=== PATIENT | male | born 1975 | race African-American/Black ===

== ENCOUNTER 2024-10-19 10:00 | Inpatient (IN) | payer MEDICAID, OTHER ==
[~2024-10-19] VITALS: Ht 172.7 cm; Wt 64.9 kg
[2024-10-19] VITALS (19 sets, daily range): BP systolic 68–138; BP diastolic 53–81; PULSE 68–88; RESP 13–19; TEMP 36.4–37.1; O2SAT 98–100
[2024-10-19] MEDS: ONDANSETRON HCL 4MG/2ML INJ IV STA (10:25)
[2024-10-19] MEDS: SODIUM CHLORIDE 0.9% 1,000 ML IV ONE (10:25)
[2024-10-19 10:50] LABS: BASOPHILS % 0.7 % (0.0-2.0); HEMATOCRIT. 41.3 % (42.0-52.0); HEMOGLOBIN. 13.8 g/dL (14.0-18.0); LYMPHOCYTES % 7.3 % (20.0-50.0); MEAN CORPUSCULAR HEMOGLOBIN 30.7 pg (28.0-32.0); MEAN CORPUSCULAR HGB CONC 33.4 g/dL (31.0-37.0); MEAN PLATELET VOLUME 9.5 fl (7.4-10.4); MONOCYTES % 4.7 % (2.0-8.0); NEUTROPHILS % 87.3 % (40.0-76.0); PLATELET 141 x1000/uL (130-400); RED BLOOD CELL COUNT 4.49 mill/uL (4.7-6.1); RED CELL DISTRIBUTION WIDTH 14.3 % (11.6-14.6); WHITE BLOOD COUNT 9.8 x1000/uL (4.5-11.0)
[2024-10-19 11:01] LABS: PROTHROMBIN TIME 10.9 sec (9.6-11.0)
[2024-10-19 11:04] LABS: CARBON DIOXIDE 12 mEq/L (21-32); CHLORIDE 102 mEq/L (98-107); POTASSIUM 4.4 mEq/L (3.5-5.1); SODIUM 139 mEq/L (136-145)
[2024-10-19 11:05] LABS: CALCIUM 9.3 mg/dL (8.7-10.4)
[2024-10-19 11:10] LABS: GLUCOSE 355 mg/dL (70-105); UREA NITROGEN BLOOD 41 mg/dL (9-23)
[2024-10-19 11:11] LABS: TROPONIN I HIGH SENSITIVITY 11 ng/L (3.0-53)
[2024-10-19 11:17] LABS: BG BASE EXCESS -12.4 mmol/L (-2.0-3.0); BG CARBOXYHEMOGLOBIN 0.2 % (0.5-1.5); BG DEOXYHEMOGLOBIN 2.1 % (0.0-5.0); BG FRACTION INSPIRED OXYGEN 21; BG OXYGEN SATURATION 97.9 % (94.0-98.0); BG OXYHEMOGLOBIN 97.7 % (94.0-98.0); BG PCO2 24.7 mmHg (35.0-48.0); BG PH 7.305 (7.350-7.450); BG PO2 104.8 mmHg (83.0-108.0); BG SAMPLE SITE RIGHT RADIAL; BG TOTAL HEMOGLOBIN 13.7 g/dL (13.5-17.5); BG VENT MODE ROOM AIR
[2024-10-19 11:24] LABS: CREATININE 2.5 mg/dL (0.6-1.3)
[2024-10-19] MEDS ORDERED: BLOOD SUGAR DIAGNOSTIC STRIP TEST PRN ×2 (11:45→14:45)
[2024-10-19] MEDS ORDERED: SODIUM PHOSPHATE 15 MMOL in SODIUM CHLORIDE 0.9% 245 ML IV PRN (11:45)
[2024-10-19] MEDS ORDERED: MAGNESIUM 2 G PREMIX 50 ML IV PRN ×2 (11:45→14:45)
[2024-10-19] MEDS ORDERED: DEXTROSE 50% WATER 50ML SYRINGE IV PRN ×2 (11:45→14:45)
[2024-10-19] MEDS ORDERED: INSULIN REGULAR (DRIP) 100 UNITS in SODIUM CHLORIDE 0.9% 99 ML IV SCH (11:45)
[2024-10-19] MEDS ORDERED: KCL 20MEQ/100ML PREMIX 100 ML IV PRN (11:45)
[2024-10-19] MEDS ORDERED: POTASSIUM CHLORIDE 40 MEQ in SODIUM CHLORIDE 0.9% 230 ML IV PRN ×2 (11:45→14:45)
[2024-10-19] MEDS: DEXT 5%/0.9% NACL 1,000 ML IV SCH ×2 (11:45→15:51)
[2024-10-19 11:48] LABS: CLARITY URINE CLEAR (CLEAR); COLOR URINE YELLOW (YELLOW); GLUCOSE URINE 3+ (NEGATIVE); KETONES URINE 4+ (NEGATIVE); LEUKOCYTE ESTERASE URINE NEGATIVE (NEGATIVE); NITRITE URINE NEGATIVE (NEGATIVE); OCCULT BLOOD URINE TRACE (NEGATIVE); PROTEIN URINE NEGATIVE (NEGATIVE); SPECIFIC GRAVITY URINE 1.022 (1.005-1.030); UROBILINOGEN URINE 0.2 E.U./dL (0.2-1.0)
[2024-10-19 12:06] LABS: BACTERIA URINE NONE SEEN; RBC URINE NONE SEEN /hpf (0-2); SQUAMOUS EPITHELIAL CELL URINE NONE SEEN /lpf (RARE/1+); WBC URINE 0-2 /hpf (0-2)
[2024-10-19] MEDS: BLOOD SUGAR DIAGNOSTIC STRIP TEST SCH ×2 (12:22→14:45)
[2024-10-19] MEDS: SODIUM CHLORIDE 0.9% 1,000 ML IV SCH ×2 (12:35→22:45)
[2024-10-19] MEDS: INSULIN REGULAR 100U/100ML PMX 100 ML IV SCH (13:37)
[2024-10-19 15:26] LABS: BG BASE EXCESS -12.3 mmol/L (-2.0-3.0); BG CARBOXYHEMOGLOBIN 1.3 % (0.5-1.5); BG DEOXYHEMOGLOBIN 45.6 % (0.0-5.0); BG FLOW(L/min) 0 L/min; BG FRACTION INSPIRED OXYGEN 21; BG HCO3 ACT 13.8 mmol/L (21.0-28.0); BG OXYGEN SATURATION 53.8 % (94.0-98.0); BG OXYHEMOGLOBIN 53.1 % (94.0-98.0); BG PCO2 32.3 mmHg (35.0-48.0); BG PH 7.247 (7.350-7.450); BG SAMPLE SITE RIGHT BRACHIAL; BG TOTAL HEMOGLOBIN 13.9 g/dL (13.5-17.5); BG VENT MODE ROOM AIR
[2024-10-19 17:20] LABS: CHLORIDE 111 mEq/L (98-107); SODIUM 142 mEq/L (136-145)
[2024-10-19 17:21] LABS: CALCIUM 8.8 mg/dL (8.7-10.4)
[2024-10-19 17:26] LABS: CREATININE 2.2 mg/dL (0.6-1.3); UREA NITROGEN BLOOD 28 mg/dL (9-23)
[2024-10-19 17:28] LABS: PHOSPHORUS 2.2 mg/dL (2.5-4.9)
[2024-10-19 17:34] LABS: CARBON DIOXIDE 10 mEq/L (21-32)
[2024-10-19 17:35] LABS: GLUCOSE 187 mg/dL (70-105)
[2024-10-19 17:57] LABS: HEPATITIS B SURFACE ANTIGEN NEGATIVE (Negative)
[2024-10-19] MEDS: KCL 20MEQ/100ML PREMIX 100 ML IV PRN (18:06)
[2024-10-19 18:19] LABS: HEPATITIS C AB NON REACTIVE (Neg) (Negative)
[2024-10-19 20:45] LABS: CHLORIDE 113 mEq/L (98-107); POTASSIUM 4.6 mEq/L (3.5-5.1); SODIUM 144 mEq/L (136-145)
[2024-10-19 20:46] LABS: CARBON DIOXIDE 19 mEq/L (21-32)
[2024-10-19 20:54] LABS: PHOSPHORUS 1.2 mg/dL (2.5-4.9)
[2024-10-19] MEDS: SODIUM PHOSPHATE 15 MMOL in SODIUM CHLORIDE 0.9% 245 ML IV PRN (22:36)
[2024-10-19] MEDS ORDERED: ACETAMINOPHEN 325MG TABLET PO PRN ×2 (22:45)
[2024-10-19] MEDS ORDERED: MAGNESIUM/ALUMINUM HYDROXIDE/SIMETHICONE 30ML UDC PO PRN (22:45)
[2024-10-19] MEDS ORDERED: DIPHENHYDRAMINE 50MG/ML VIAL IV PRN (22:45)
[2024-10-19] MEDS ORDERED: ONDANSETRON HCL 4MG/2ML INJ IV PRN (22:45)
[2024-10-20] VITALS (25 sets, daily range): BP systolic 99–137; BP diastolic 59–77; PULSE 57–88; RESP 10–23; TEMP 35.9–37.1; O2SAT 96–100
[2024-10-20 01:51] LABS: CHLORIDE 113 mEq/L (98-107); POTASSIUM 4.1 mEq/L (3.5-5.1); SODIUM 145 mEq/L (136-145)
[2024-10-20 01:52] LABS: CARBON DIOXIDE 23 mEq/L (21-32)
[2024-10-20 01:59] LABS: PHOSPHORUS 1.1 mg/dL (2.5-4.9)
[2024-10-20] MEDS ORDERED: DEXTROSE 50% WATER 50ML SYRINGE IV PRN (02:15)
[2024-10-20] MEDS: SODIUM CHLORIDE 0.9% 1,000 ML IV SCH (02:26)
[2024-10-20] MEDS: INSULIN GLARGINE 100 UNITS/ML SUBCUT SCH ×2 (02:27→02:45)
[2024-10-20] MEDS: POTASSIUM PHOSPHATE 30 MMOL in SODIUM CHLORIDE 0.9% 490 ML IV NR (03:30)
[2024-10-20] MEDS: BLOOD SUGAR DIAGNOSTIC STRIP TEST SCH (06:19)
[2024-10-20] MEDS: SODIUM CHLORIDE 0.9% 3ML FLUSH IVF SCH (06:19)
[2024-10-20] MEDS: INSULIN LISPRO 100 UNITS/ML SUBCUT SCH (06:20)
[2024-10-20] MEDS: PANTOPRAZOLE SODIUM 40 MG/VIAL IV SCH (09:06)
[2024-10-26] MEDS ORDERED: EMPA10TA PO (10:02)
[2024-10-26] MEDS ORDERED: INSU100I13 SUBCUT (10:02)
[2024-10-26] MEDS ORDERED: SERT-422 PO (10:02)
[2024-10-26] MEDS ORDERED: INSU100I28 SUBCUT (10:02)
[2024-10-28] MEDS ORDERED: SERT-422 PO (12:25)
[2024-10-28] MEDS ORDERED: POTA-205 MT (12:25)
[2024-10-28] MEDS ORDERED: INSU100I28 SUBCUT (12:25)
[2024-10-28] MEDS ORDERED: EMPA10TA PO (12:25)
[2024-10-28] MEDS ORDERED: INSU100I13 SUBCUT (12:25)
== END 2024-10-20 21:17 | disposition home or self-care (01) | DRG 420 ==
LOC: ER 10:00 → MICUSO 11:06 → EDBEDREQTM 11:09 → EDBEDREQ 11:09 → ENRESERV 12:42 → 7EST 10-20 10:58
PROVIDERS: ADMIT Internal Medicine; ATTEND Internal Medicine
DX: E11.10 Type 2 diabetes mellitus with ketoacidosis without coma (principal); R06.02 Shortness of breath; R11.2 Nausea with vomiting, unspecified
CPT/HCPCS: 36415; 36600; 71045; 80048; 80051; 80320; 81003; 82010; 82375; 82805; 82962; 83036; 83735; 83930; 84100; 84484; 85025; 86705; 87340; 93005; 96361; 96374; 99291; A4606; J1815; J2405; J2470; J3480; J3490; J7030; J7040; J7042; J7050; G0480